=== PATIENT | male | born 1995 | race African-American/Black ===

== ENCOUNTER 2017-02-02 08:20 | Emergency (ER) | payer OTHER ==
[~2017-02-02] VITALS: Ht 167.6 cm; Wt 73.6 kg
[2017-02-02 08:23] VITALS: BP 139/80; TEMP 97.9
[2017-02-02 08:49] VITALS: PULSE 72
== END 2017-02-02 08:51 | disposition home or self-care (01) ==
LOC: COL.ER 08:20
DX: R13.10 Dysphagia, unspecified (principal)